=== PATIENT | female | born 1935 ===

== ENCOUNTER 2018-09-06 21:24 | Inpatient (IN) ==
[2018-09-07] MEDS ORDERED: *HR* FentaNYL (PF) 100 MCG/2 ML VIAL IVP PRN (01:54)
[2018-09-07] MEDS: *HR* OxyCODONE/APAP 5/325 TABLET PO PRN (02:36)
[2018-09-07] MEDS ORDERED: Naloxone 0.4 MG/ML INJ IVP PRN (03:16)
--- NOTE | 2018-09-07 03:29 | Internal Med History&Physical ---
Date of Encounter: 09/07/18 Time of Encounter: 03:00 Internal Medicine - H&P: HPI Chief complaint: Right hip fracture Admitted From: Hospital to Hospital Transfer Plans for Post Hospital Care: Home History of present illness: Ms. LEWIS is a 83 year old female Patient presented to the [facility] for evaluation of right hip pain. She says that she had a fall at home after she was trying to get up out of her chair and then she fell onto her right hip. She denies dizziness, blacking out and losing consciousness. She denies hitting her head. She has never had a broken bone before, but has had falls before at home. She uses a cane and a walker to get around. In the [place] emergency room patient's vital signs were: Heart rate 95, blood pressure 207/76, respiratory rate 18 oxygen saturation 95% on room air. CBC: White count 12.9, hemoglobin 11.5, hematocrit 35, platelets 261. BMP: Sodium 141, potassium 4.1, chloride 102, carbon dioxide 26, glucose 142, BU when 33, creatinine 1.22. INR: 1.0. Troponin 0.04. Urinalysis moderate leukocyte esterase and positive nitrites. A chest x-ray showed no acute cardiopulmonary process. CT of the patient's right hip showed a transcervical right femoral neck fracture with mild superior and anterior displacement of the distal fracture fragment. There was tiny 1-2 mm fracture fragments seen anterior to the fracture line. Patient was given 5 mg dose of [place], 50 g of fentanyl and [address] Chavez of orthopedic surgery was notified, and agreed to see the patient in consultation. Patient was transferred to [facility] for further management. Upon my evaluation, patient is resting comfortably in the hospital bed in no acute distress. She denies chest pain, abdominal pain, nausea, vomiting, diarrhea and constipation. She says the right hip feels better, but still painful with movement. She denies dysuria as well. She denies significant family medical history, review of patient's chart indicates that patient has a history of diabetes, hypertension and a pacemaker placement. She is a full code. Past Med Surg Social Fam HX - Past Medical History Medical history: atrial fibrillation, dementia, diabetes, hypertension, thyroid disease - Past Surgical History Surgical History: pacemaker/AICD - Social History Smoking Status: Never smoker Smokeless Tobacco Status: No Alcohol use: none - Family History Mother History Unknown: Yes All Systems PM: A 10-system review of systems was performed and is negative for pertinent findings except as documented above in the HPI. - Constitutional Vitals: Pulse Ox 95 09/07/18 01:09 General appearance: Present: cooperative, A&O X 3, pleasant, no acute distress, answers questions appropriately Exam: - - Head Head exam: Present: normal inspection - Eye Eye exam: Present: EOMI, normal appearance - Respiratory Respiratory exam: Present: CTAB. Absent: rales, respiratory distress, rhonchi, wheezes - Cardiovascular Cardiovascular exam: Present: RRR. Absent: diastolic murmur, systolic murmur - GI/Abdominal GI/Abdominal exam: Present: normal bowel sounds, soft. Absent: tenderness - Extremities Exam Extremities exam: Present: warm, radial pulses palpable and symmetrical. Absent: calf tenderness, pedal edema, tenderness Additional comments: Neurovascularly intact in the lower extremities bilaterally. Right hip tender to palpation laterally - Neurological Exam Neurological exam: Present: no focal deficits, strengths equal and symetr throughout. Absent: motor sensory deficit, facial droop, speech deficit - Skin Skin exam: Present: dry, normal color, warm - Assessment and Plan (1) Fall Current Visit: Yes Status: Acute Assessment and plan: Mechanical fall after patient anthony from chair. She has baseline mobility problems, requiring a walker or cane. Right hip fracture noted on imaging. She did not hit her head, no other injuries reported. Management as below Qualifiers: Encounter type: initial encounter Qualified Code(s): W19.XXXA - Unspecified fall, initial encounter (2) Closed right hip fracture Current Visit: Yes Status: Acute Assessment and plan: Right hip fracture noted on CT. Dr. Chavez of orthopedic surgery has been notified. Follow-up orthopedic surgery recommendations Nothing by mouth Pain management as needed A.m. labs A.m. EKG Qualifiers: Encounter type: initial encounter Qualified Code(s): S72.001A - Fracture of unspecified part of neck of right femur, initial encounter for closed fracture (3) Urinary tract infection Current Visit: Yes Status: Acute Assessment and plan: Patient's urinalysis was positive for nitrites and moderate leukocyte esterase. There are also white blood cells and bacteria seen. She was started on ceftriaxone at the [place] emergency room. This could explain her elevated white count as well. Continue ceftriaxone Qualifiers: Urinary tract infection type: acute cystitis Hematuria presence: with hematuria Qualified Code(s): N30.01 - Acute cystitis with hematuria (4) Diabetes Current Visit: Yes Status: Acute Assessment and plan: Patient is an insulin-dependent diabetic Monitor sugars every 6 hours Nothing by mouth Low dose insulin sliding scale as needed Hold home meds. 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 Patient denies chest pain. EKG shows electronic atrial pacemaker, no acute ischemic changes. manager managed backup services Repeat troponin EKG in the morning Consider further workup including echocardiogram if indicated (6) DVT prophylaxis Current Visit: Yes Status: Acute Assessment and plan: SCDs - Time Spent With Patient Total time spent is greater than 50% in coordination of care (as documented) at patient's floor/unit and/or counseling patient: Greater than 35 minutes
[2018-09-07] MEDS ORDERED: Dextrose Gel 15 GM/37.5 ML TUBE PO PRN ×2 (03:30)
[2018-09-07] MEDS ORDERED: *HR* Dextrose 50 % in Water (Syg) 50 ML SYRINGE IVP PRN (03:30)
[2018-09-07] MEDS ORDERED: D5% in Water 1,000 ML IVC PRN (03:30)
[2018-09-07] MEDS ORDERED: Acetaminophen 325 MG TABLET PO PRN (04:57)
[2018-09-07 05:45] LABS: Hematocrit 33.7 % (35.3-44.9); Hemoglobin 11.1 g/dL (11.5-15.4); Mean Corpuscular HGB Conc 32.9 g/dL (31.6-35.5); Mean Corpuscular Hemoglobin 30.1 pg (28.0-33.3); Mean Corpuscular Volume 91.3 fL (83.0-100.0); Mean Platelet Volume 9.6 fL (9.4-12.4); Platelet Count 217 K/mcL (140-400); Red Blood Count 3.69 M/mcL (3.82-4.97); Red Cell Distribution Width 12.2 % (11.5-14.5)
[2018-09-07 05:50] LABS: Prothrombin Time 11.7 Seconds (9.4-12.1)
[2018-09-07] MEDS: Insulin LISPRO 300 UNITS/3 ML VIAL SQ SCH ×2 (05:54→11:59)
[2018-09-07 06:04] LABS: BUN/Creatinine Ratio 26 (6-26); Blood Urea Nitrogen 26 mg/dL (8-23); Calcium 9.2 mg/dL (8.6-10.3); Carbon Dioxide 31 mEq/L (23-29); Chloride 103 mEq/L (98-107); Glucose 117 mg/dL (70-105); Osmolality,Calculated 296 (280-300); Potassium 3.8 mEq/L (3.5-5.1); Sodium 140 mEq/L (136-145); eGFR For Non-African Americans 53 (> 60)
[2018-09-07 06:06] LABS: Troponin I 0.14 ng/mL (< 0.04)
[2018-09-07] MEDS ORDERED: *HR* Heparin 5,000 UNIT/ML VIAL IVP ONE (06:23)
[2018-09-07] MEDS ORDERED: *HR* Heparin 5,000 UNIT/ML VIAL IVP PRN ×2 (06:23)
[2018-09-07] MEDS ORDERED: Heparin 25,000 UNIT/250 ML D5W 25,000 UNIT/250 ML IV.SOLN IVC SCH (06:30)
--- NOTE | 2018-09-07 09:01 | Event Note ---
Date of Encounter: 09/07/18 Time of Encounter: 08:56 I have seen and evaluated the patient and bedside. She reports right hip pain, denies chest pain. Reports hitting her head when she fell, denies nausea, vomiting or dizziness. Physical exam Vitals: Reviewed. General: Alert and oriented only to person not time or place. in mild distress due to right hip pain Skin: Normal color, no rash, no lesions. HEENT: EOM, pupils equal, round and reactive. Cardiovascular: Irregularly irregular, normal S1 & S2, no rubs, murmurs or gallops. Lungs: CTA b/l, no wheezes or crackles. Abdomen: Soft, non-tender, no rigidity. Extremities: No edema Neurological: No focal neurological abnormalities Rest of the physical exam is non contributory Assessment: 1. Right hip fracture 2. S/P fall 3. Atrial fibrillation 4. Elevated trops possible due to HTN crisis BP 207/76 on presentation 5. Dementia 6. Diabetes 7. HTN 8. VTE prophylaxis 9. UTI Plan cardiology consulted for pre-op clearance on a heparin drip due to elevated trops TTE ordered Orthopedic team consulted, recommendation appreciated. On ceftriaxone 1 g daily Continue oxycodone for pain control We will resume home medication when verified by the pharmacy head ct ordered
[2018-09-07] MEDS: D5% in 0.45% NACL 1,000 ML IVC SCH ×2 (09:37→20:58)
[2018-09-07] MEDS: cefTRIAXone 1,000 MG in Water for inj. (sterile) 20 ML 10 ML IVP SCH (09:38)
[2018-09-07] MEDS: OXYCODONE Oral CONC 10 MG/0.5 ML ORAL.SYG SL PRN ×3 (09:38→22:38)
--- NOTE | 2018-09-07 10:22 | Cardiology Consult Note ---
<Shantal Rivas - Last Filed: 09/07/18 10:16> Date of Encounter: 09/07/18 Time of Encounter: 09:30 Assessment and Plan (1) Elevated troponin Current Visit: Yes Status: Acute Per cardiology: -Troponins 0.04 [place], 0.14 in the setting of fall, hip fracture, UTI. -Denies chest pain. -No acute ischemic changes noted. -TTE pending. -On heparin drip. -No previous cardiology records to review. -Suspect demand ischemia. NO cardiac rehab consult warranted. -Continue to trend troponins. -Futher recs pending TTE. (2) Preop cardiovascular exam Current Visit: Yes Status: Acute Per cardiology: -Preop risk stratification for orthopedic procedure. -Patient is a poor historian and no previous cardiology records to review. -Patient reports unable to achieve 4 METS. -TTE pending. -No acute ischemic ECG changes noted. -Patient would be at elevated risk for cardiovascular complications in the alea- operative time frame. Discussion w patient/family: The assessment and plan as outlined above was discussed with the patient who expressed understanding and agreement. All questions were answered. Thank you for involving us in the care of your patient. Please call with any questions. Discussed and reviewed with . History of Present Illness Consult date: 09/07/18 Requesting physician: Holland Cabrera Consult reason: elevated troponin, preop Chief complaint: fall History of present illness: Ms. Dumont is a 83 year old female with a relevant past medical history of CKD, D M, HTN, pacemaker. dementia who presented to outside facility with complaints of a fall at home. States she fell getting out of her chair. Denies dizziness, lightheadedness. States she just lost her balance. At outside facility was noted to have hip fracture and UTI. Troponin was elevated at 0.04. Patient denies chest pain. Denies shortness of breath. Reports unable to achieve 4 mets. Reports pacemaker, but is unsure why she has a pacemaker. Past Med Surg Social Fam HX - Past Medical History Attestation: Yes The following information was validated with the patient. Source: patient, old records reviewed Medical history: atrial fibrillation, dementia, diabetes, hypertension, thyroid disease - Past Surgical History Surgical History: pacemaker/AICD - Social History Smoking Status: Never smoker Smokeless Tobacco Status: No Alcohol use: none - Family History Mother History Unknown: Yes Medications and Allergies Allergy/AdvReac Type Severity Reaction Status Date / Time No Known Allergies Allergy Verified 09/07/18 06:27 All Systems Review: The remainder of the systems were reviewed and are negative - Constitutional Constitutional: frequent falls - Cardiovascular Cardiovascular: as per HPI Physical Examination Vital Signs, Last 4 Hours Temp Pulse Resp BP Pulse Ox 09/07/18 07:09 99.3 F 71 14 150/64 93 General: Conversant, No Apparent Distress HEENT: Atraumatic, Normocephaly, Mucus Membranes Moist Neck: No JVD, Normal carotid pulses Cardiac: Reg Rate and Rhythm, Normal S1 and S2, No Murmur Lungs: Normal Breath Sounds, No Wheeze, Rales, Rhonchi Neuro: Alert and responsive, No focal deficits noted Abdomen: Soft, Non-Tender Skin: No rashes noted on visualized skin Musculoskeletal: No Chest Wall Tenderness Extremities: No Clubbing, No Cyanosis, No Edema, Normal Pulses Results 09/07/18 05:28 09/07/18 05:25 Lab Results Impressions Outside Interv Exam: Second Opinion 09/07/18 00:00 IMPRESSION: 1. Acute right hip anterior displaced and angulated femoral neck fracture with normal hip alignment and mild osteoarthritis. 2. Acute left hip anterior angulated and impacted femoral neck fracture with normal hip alignment and mild osteoarthritis. 3. Normal pelvic alignment with no acute pelvic fracture. Mild symmetric sacroiliac osteoarthritis. 4. Lower lumbar degenerative changes with grade 1 spondylolisthesis. 5. No significant intramuscular hematoma or acute intrapelvic posttraumatic abnormality. 6. Indeterminate left external iliac chain lymphadenopathy. If patient has prior exams this could be evaluated for stability. D/ / 09/07/2018 09:44:33 Mamadou Bowling MD / Isadora Stapleton Interpreting Provider: Mamadou Bowling MD Laboratory Tests 09/07/18 09/07/18 05:25 05:28 Hgb 11.1 L Creatinine 1.00 Troponin I 0.14 H* Active Medications Acetaminophen (Tylenol) 650 mg PO Q6HR PRN PRN Reason: fever GREATER than 101.2 F Stop: 03/09/19 04:58 Dextrose/Water (Dextrose 50% (Syg)) 25 ml IVP AD PRN PRN Reason: Hypoglycemia Stop: 03/09/19 03:31 Fentanyl Citrate (Fentanyl (Pf)) 25 mcg IVP Q3H PRN PRN Reason: Breakthrough Pain Stop: 03/09/19 02:01 Glucagon (Glucagen) 1 mg IM ONCE PRN PRN Reason: Hypoglycemia Stop: 03/09/19 03:31 Glucose (Gluctose) 15 gm PO ONCE PRN PRN Reason: Hypoglycemia Stop: 03/09/19 03:31 Glucose (Gluctose) 30 gm PO ONCE PRN PRN Reason: Hypoglycemia Stop: 03/09/19 03:31 Heparin Sodium (Porcine) (Heparin) 3,900 unit 60 unit/kg (3900 unit) IVP Q6HR PRN PRN Reason: SEE COMMENTS Stop: 03/09/19 06:24 Heparin Sodium (Porcine) (Heparin) 2,000 unit 30 unit/kg (2000 unit) IVP Q6H PRN PRN Reason: SEE COMMENTS Stop: 03/09/19 06:24 Hydralazine HCl (Hydralazine) 10 mg IVP Q6HR PRN PRN Reason: Hypertension Stop: 03/09/19 05:13 Last Admin: 09/07/18 05:44 Dose: 10 mg Documented by: Ceftriaxone Sodium 1,000 mg/ (Sterile Water) 10 mls @ 600 mls/hr IVP DAILY ALEXI Stop: 03/09/19 09:01 Last Admin: 09/07/18 09:38 Dose: 600 mls/hr Documented by: Dextrose (Dextrose 5%) 1,000 mls @ 100 mls/hr IVC .Q10H PRN PRN Reason: HYPOGLYCEMIA Stop: 03/09/19 03:31 Heparin Sodium/Dextrose (Heparin 25,000 Unit/250 Ml D5w) 25,000 unit in 250 mls @ 7.824 mls/hr IVC .Q24H ALEXI; Protocol Stop: 03/09/19 06:31 Last Admin: 09/07/18 06:59 Dose: 12 unit/kg/hr, 7.8 mls/hr Documented by: Dextrose/Sodium Chloride (D5% And 0.45% Nacl 1000 Ml Bag) 1,000 mls @ 50 mls/hr IVC .Q20H ALEXI Stop: 03/09/19 08:01 Last Admin: 09/07/18 09:37 Dose: 50 mls/hr Documented by: Insulin Human Lispro (Humalog) 0 units SQ Q6HR ALEXI; Protocol Stop: 03/09/19 06:01 Last Admin: 09/07/18 05:54 Dose: Not Given Documented by: Naloxone HCl (Narcan) 0.4 mg IVP Q2MPRN PRN PRN Reason: SEE COMMENTS Stop: 03/09/19 03:17 Oxycodone HCl (Oxycodone Oral Conc) 10 mg SL Q4H PRN; Protocol PRN Reason: Severe Pain Stop: 03/09/19 03:17 Last Admin: 09/07/18 09:38 Dose: 10 mg Documented by: Oxycodone/Acetaminophen (Percocet 5/325) 1 each PO Q6HR PRN PRN Reason: Moderate Pain Stop: 03/09/19 01:55 Last Admin: 09/07/18 02:36 Dose: 1 each Documented by: - Imaging and Cardiology Chest Xray: report reviewed Echo: pending - EKG Interpretation EKG results cardiology: personally reviewed (ECG with atrially paced rhythm, HR 74.), other (Telemetry reviewed with average HR previous 12 hours noted to be 65, paced rhythm. PVCs noted.) Consult Discharge Plan - Plan Referrals: NONE,PCP [Primary Care Provider] - <Landy Pinedo - Last Filed: 09/07/18 16:00> Date of Encounter: 09/07/18 - Attending Attestation Patient was seen and evaluated independently by me. Findings, assessment and plan were discussed at length with patient, questions answered. Agree with nurse practitioner's/resident's documentation. Addition as follows, 83 yoCM ho dementia, PPM, HTN, DM. P/w a fall with B/L femoral fracture. Plan for ORIF. Consulted for trop elevation. No cp, dyspnea, palpitations. No ho [place]. Baseline limited walking at home, METs unclear. Tangential speech. VSS, CTA, RR, no LE edema. ECG A pacing, trop peak 0.14, TTE ef 65%, RV nl, moderate TR, mild PH RVSP 46. A: B/L femoral fracture Mild troponin elevation, likely type II or mycardial injury Preserved LVEF PPM in place, A pacing Elevated CV risk for surgery, no active angina/CHF/uncontrolled arrhythmia P: no further CV workup for surgery alea-op lopressor prn for hypertension and tachycardia Landy Pinedo MD, PhD Assessment and Plan Discussion w patient/family: The assessment and plan as outlined above was discussed with the patient and/or family members who expressed understanding and agreement. All questions were answered. Thank you for involving us in the care of your patient. Please call with any questions. History of Present Illness History of present illness: Ms. Dumont is a 83 year old female All Systems Review: The remainder of the systems were reviewed and are negative Results 09/07/18 05:28 09/07/18 05:25 Lab Results 09/07/18 09/07/18 09/07/18 05:25 05:25 05:28 WBC 10.1 Hgb 11.1 L Hct 33.7 L Plt Count 217 INR 1.0 Sodium 140 Potassium 3.8 Chloride 103 Carbon Dioxide 31 H BUN 26 H Creatinine 1.00 Glucose 117 H Calcium 9.2 Troponin I 0.14 H* 09/07/18 12:29 WBC Hgb Hct Plt Count INR Sodium Potassium Chloride Carbon Dioxide BUN Creatinine Glucose Calcium Troponin I 0.08 H*
--- NOTE | 2018-09-07 10:39 | Orthopedic Consult Note ---
Date of Encounter: 09/07/18 Time of Encounter: 10:39 Assessment and Plan (1) Closed right hip fracture Current Visit: Yes Status: Acute I did have a long discussion with the patient regarding the diagnosis. She has a right displaced femoral neck fracture as well as an impacted left femoral neck fracture. My recommendation is to proceed with right hip hemiarthroplasty due to the displacement and pinning of the left hip. The risks discussed included but were not limited to stiffness, bleeding, infection, blood clots, damage to neurovascular structures, tendons, ligaments, and bone. Also discussed was the risk of continued symptoms and possible need for further procedures. I did discuss the anesthesia risks including stroke, heart attack, and . I did discuss the reasonable, foreseeable postoperative course with the patient. The patient did wish to proceed and consent was obtained. We will proceed once cleared for surgery by the primary team. I have reviewed each of the pertinent components of this chart and any other pertinent medical component(s) including but not limited to pertinent application of the chief complaint, history of present illness, current medication, medical history, allergies, family history, medical history, surgical history, social history, review of systems, vital signs, and any other portion of the pertinent patient medical record directly or indirectly involved with this patient care that is pertinent based on my medical decision process. ORIANA Barrett Qualifiers: Encounter type: initial encounter Qualified Code(s): S72.001A - Fracture of unspecified part of neck of right femur, initial encounter for closed fracture History of Present Illness HPI: Ms. Dumont is a 83 year old female transferred from [facility] with a chief complaint of right hip pain. She seen at that facility where x-rays and a CT scan was performed of her right hip showing a displaced femoral neck fracture. She is transferred to our facility for definitive management and is currently admitted to the hospitalist. The patient complains of pain isolated to the right hip and said she had a fall. She denies any other significant pain. She denies any numbness, tingling, or any other associated signs or symptoms. The pain is worse with movement of the right hip and better with rest. No other modifying factors. Past Med Surg Social Fam HX - Past Medical History Medical history: atrial fibrillation, dementia, diabetes, hypertension, thyroid disease - Past Surgical History Surgical History: pacemaker/AICD - Social History Smoking Status: Never smoker Smokeless Tobacco Status: No Alcohol use: none - Family History Mother History Unknown: Yes Medications and Allergies Allergy/AdvReac Type Severity Reaction Status Date / Time No Known Allergies Allergy Verified 09/07/18 06:27 All Systems Reviewed: Constitutional -The patient denies any fevers, chills, or feelings of illness Neurologic -The patient denies any numbness, tingling, or burning pains Physical Exam - Constitutional Vitals: Temp Pulse Resp BP Pulse Ox 99.3 F 71 14 150/64 93 09/07/18 07:09 09/07/18 07:09 09/07/18 07:09 09/07/18 07:09 09/07/18 07:09 Constitutional -Vitals reviewed -The patient is well developed and well nourished. -Mood is pleasant. -The patient is well groomed. Psychiatric -The patient is fully alert and oriented x 3. Respiratory: -Respiratory effort normal Abdomen: -Soft abdomen -Non tender -Non distended: Left upper extremity: -No deformities. The overlying skin is intact. No obvious signs of acute trauma. -No tenderness to palpation throughout. -No significant pain with passive motion of the shoulder, elbow, wrist, and fingers within the limits of the bed. -Able to make an "OK" sign, cross the index and long fingers, and extend the thumb. -Sensation grossly intact to light touch throughout the median, radial, and ulnar distributions. -Radial pulse is present; Fingers have good capillary refill. Right upper extremity: -No deformities. The overlying skin is intact. No obvious signs of acute trauma. -No tenderness to palpation throughout. -No significant pain with passive motion of the shoulder, elbow, wrist, and fingers within the limits of the bed. -Able to make an "OK" sign, cross the index and long fingers, and extend the luis miguel mb. -Sensation grossly intact to light touch throughout the median, radial, and ulnar distributions. -Radial pulse is present; Fingers have good capillary refill. Left lower extremity: -No deformities. The overlying skin is intact. No obvious signs of acute trauma. -No tenderness to palpation throughout. -No significant pain with passive motion of the left hip. -No pain with passive motion of the knee, ankle, and toes within the limits of the bed. -No pain with axial loading of the thigh. -Able to dorsiflex and plantarflex the ankle and toes. -Sensation is grossly intact to light touch throughout the sural, saphenous, superficial peroneal, and deep peroneal distributions. -Toes have good capillary refill. Right lower extremity: -The extremity is shortened and externally rotated. The overlying skin is intact. -There is tenderness in the groin region as well as the proximal lateral thigh. -I did not range the hip due to the known fracture. -No tenderness along the distal thigh, leg, ankle, foot, or toes. -Able to dorsiflex and plantarflex the ankle and toes. -Sensation is grossly intact to light touch throughout the sural, saphenous, superficial peroneal, and deep peroneal distributions. -Toes have good capillary refill. Diagnostic Imaging: I did personally review and interpret the right hip x-ray and CT scan from the outlying facility. There is a displaced right femoral neck fracture. I did discuss the left hip with Dr. Bowling of muscular skeletal radiology and we both feel that there is an acute impaction of the left femoral neck. Results - Labs Result Diagrams: 09/07/18 05:28 09/07/18 05:25 Labs: Abnormal lab results RBC 3.69 M/mcL (3.82-4.97) L 09/07/18 05:28 Hgb 11.1 g/dL (11.5-15.4) L 09/07/18 05:28 Hct 33.7 % (35.3-44.9) L 09/07/18 05:28 Heparin Anti-Xa, Unfract 0.01 IU/mL (0.30-0.70) L 09/07/18 06:37 Carbon Dioxide 31 mEq/L (23-29) H 09/07/18 05:25 BUN 26 mg/dL (8-23) H 09/07/18 05:25 Est GFR (Non-Af Amer) 53 (> 60) L 09/07/18 05:25 Glucose 117 mg/dL (70-105) H 09/07/18 05:25 0.14 ng/mL (< 0.04) H* 09/07/18 05:25 H & H 09/07/18 Range/Units 05:28 Hgb 11.1 L (11.5-15.4) g/dL Hct 33.7 L (35.3-44.9) % All other labs normal. Consult Discharge Plan - Plan Referrals: NONE,PCP [Primary Care Provider] -
--- NOTE | 2018-09-07 14:59 | Anesthesia Evaluation PreOp ---
Date of Encounter: 09/07/18 Time of Encounter: 15:21 - Past History Planned Operation: Right linda-hip, left percutaneous pinning Cardiac History: MD (? likely demand ischemia; mildly elevated troponins in the setting of acute fall/hip fracture; patient poor historian and with unclear cardiac history without prior available records; unremarkable TTE this admission (although poor functional capacity - unable to achieve 4 METS); patient is at an elevated risk of alea-op cardiovascular complications), HTN, Arrhythmia (atrial fibrillation), Pacemaker/ICD (pacemaker only), Other Pulmonary History: Denies Any Significant HX CERTIFIED PEDIATRIC NURSE PRACTITIONER History: Other (dementia) Other Medical History: Diabetes Type II (insulin-dependent diabetes mellitus), Thyroid, Other (multiple acute fractures: right displaced femoral neck fracture, and impacted left femoral neck fracture) Anesthesia History: No Prior Anesthetic Complications, Past Anesthesia (C-S, pacemaker) Alcohol Use: none Medications and Allergies Allergy/AdvReac Type Severity Reaction Status Date / Time No Known Allergies Allergy Verified 09/07/18 06:27 - Meds/Allergy Pre-op Review Medications Reviewed: Yes Allergies Reviewed: Yes Beta Blockers on Current Med List: No Anesthesia Results - Labs 09/07/18 05:28 09/07/18 05:25 - Imaging EKG: report reviewed, image reviewed (electronic atrial pacemaker) Additional studies: 09-07-18 TTE: Impressions: LVEF 65%. Mild left ventricular diastolic dysfunction. Normal right ventricular structure and function. Moderate tricuspid regurgitation. Mild pulmonary hypertension. A device lead was visualized in the right atrium and right ventricle. Anesthesia Exam Last Vital Signs Temp 98.9 F 09/07/18 09:53 Pulse 76 09/07/18 09:53 Resp 16 09/07/18 09:53 BP 144/67 09/07/18 09:53 Pulse Ox 95 09/07/18 09:53 Weight: 65 kg NPO (# of Hours): > 8 hrs - HEENT Pupil (Motor): Pupils equal, EOMI Mallampati: II Teeth: Edentulous Oral Opening: Greater than 3 - CERTIFIED PEDIATRIC NURSE PRACTITIONER LOC: Oriented - Cardiac Rhythm: Regular Murmur: None - Pulmonary Breath Sounds: bilateral Clear Respiratory Effort: Symmetrical Anesthesia Assess/Plan ASA Score: 3 Level of consciousness: Cooperative Anesthetic Plan: General Monitoring Plan: Standard Monitors Recovery Plan: PACU
--- NOTE | 2018-09-07 16:54 | Event Note ---
Date of Encounter: 09/07/18 Time of Encounter: 16:52 Patient has been medically cleared but has been on a heparin drip. This has now been discontinued. I did discuss the case with my partner Dr. Henry who will perform the surgery this weekend.
[2018-09-07] MEDS: *HR* Heparin 5,000 UNIT/ML VIAL SQ SCH (22:38)
[2018-09-08 01:06] LABS: Basophils % 0.3 %; Eosinophils % 0.1 %; Hematocrit 36.8 % (35.3-44.9); Immature Granulocytes % 0.3 % (0-4); Lymphocytes # 0.9 K/mcL (0.6-4.6); Lymphocytes % 7.5 %; Mean Corpuscular HGB Conc 32.6 g/dL (31.6-35.5); Mean Corpuscular Hemoglobin 30.2 pg (28.0-33.3); Mean Corpuscular Volume 92.7 fL (83.0-100.0); Mean Platelet Volume 9.8 fL (9.4-12.4); Monocytes # 0.7 K/mcL (0.0-1.3); Monocytes % 5.5 %; Neutrophils # 10.1 K/mcL (1.6-8.9); Platelet Count 219 K/mcL (140-400); Red Blood Count 3.97 M/mcL (3.82-4.97); Red Cell Distribution Width 12.4 % (11.5-14.5); Segmented Neutrophils % 86.3 %
[2018-09-08 01:15] LABS: BUN/Creatinine Ratio 20 (6-26); Blood Urea Nitrogen 20 mg/dL (8-23); Calcium 9.2 mg/dL (8.6-10.3); Carbon Dioxide 29 mEq/L (23-29); Chloride 98 mEq/L (98-107); Glucose 151 mg/dL (70-105); Magnesium 1.7 mg/dL (1.6-2.6); Osmolality,Calculated 294 (280-300); Phosphorous 2.9 mg/dL (2.7-4.5); Potassium 3.6 mEq/L (3.5-5.1); Sodium 139 mEq/L (136-145); eGFR For Non-African Americans 54 (> 60)
[2018-09-08] MEDS: *HR* Heparin 5,000 UNIT/ML VIAL SQ SCH ×3 (06:24→22:52)
[2018-09-08] MEDS: Insulin LISPRO 300 UNITS/3 ML VIAL SQ SCH ×3 (08:03→16:50)
[2018-09-08] MEDS: cefTRIAXone 1,000 MG in Water for inj. (sterile) 20 ML 10 ML IVP SCH (08:06)
--- NOTE | 2018-09-08 09:44 | Internal Med Progress Note ---
Hospitalist Progress Note - Encounter Date of Encounter: 09/08/18 Time of Encounter: 09:43 - Subjective Interval History: I have seen and evaluated the patient at bedside. Patient pleasantly demented, denies chest pain, shortness of breath, nausea and vomiting. - Exam Vitals: Temp Pulse Resp BP Pulse Ox 99.8 F H 67 16 148/75 93 09/08/18 07:13 09/08/18 07:13 09/08/18 07:13 09/08/18 07:13 09/08/18 07:13 Exam: Vitals: Reviewed. General: Alert and oriented only to person not time or place. in no distress Cardiovascular: Irregularly irregular, normal S1 & S2, no rubs, murmurs or gallops. Lungs: CTA b/l, no wheezes or crackles. Abdomen: Soft, non-tender, no rigidity. NABS in all 4 quadrants Extremities: No edema Neurological: No focal neurological abnormalities Rest of the physical exam is non contributory - Assessment and Plan (1) Hypertension Current Visit: Yes Status: Chronic Assessment and Plan: BP has been well controlled. will resume clonidine 0.1mg/PO BID, home medication. will hold amlodipine/valsartan and triamterene/HCTZ. continue hydralazine 10mg/IV Q6HR PRN for SBP >190 (2) Dementia Current Visit: Yes Status: Chronic Assessment and Plan: will resume home medications patient on memantie 28mg/PO daily and donepezil 10mg/PO daily (3) Closed right hip fracture Current Visit: Yes Status: Acute Assessment and Plan: patient scheduled for surgery tomorrow. plan of care as per orthopedic team. (4) Diabetes Current Visit: Yes Status: Chronic Assessment and Plan: A1C ordered. carbs controlled diet. continue lispro low dose sliding scale ac. (5) Elevated troponin Current Visit: Yes Status: Ruled-out Assessment and Plan: most likely due to demand ischemia. due to hypertensive crisis on presentation (6) Fall Current Visit: Yes Status: Acute Assessment and Plan: fall precautions. 1:1 sitter as patient has been trying to get out of bed. PT/OT . (7) Urinary tract infection Current Visit: Yes Status: Acute Assessment and Plan: patient started on ceftriaxone 1gm/IV daily. will repeat ua, reflex culture (8) Hypothyroidism Current Visit: Yes Status: Chronic Assessment and Plan: on levothyroxine 25 mcg/PO daily. (9) Atrial fibrillation Current Visit: Yes Status: Chronic Assessment and Plan: rate controlled off medications. not on anticoagulation due to high risk of falls DVT Prophylaxis: On heparin SubQ - Summary of Assessment and Plan Summary of Assessment and Plan: Patient to remain in the hospital due to right hip fracture. scheduled for surgery tomorrow - Time Spent with Patient Total time spent is greater than 50% in coordination of care (as documented) at patient's floor/unit and/or counseling patient: Greater than 35 minutes (40) Plan of Care Discussed with: nurse Internal Medicine: Result - Labs CBC & Chem 7: 09/08/18 00:43 09/08/18 00:43 Labs: Short CBC 09/08/18 Range/Units 00:43 WBC 11.7 H (4.3-11.1) K/mcL Hgb 12.0 (11.5-15.4) g/dL Hct 36.8 (35.3-44.9) % Plt Count 219 (140-400) K/mcL Neutrophils # 10.1 H (1.6-8.9) K/mcL BMP 09/08/18 00:43 Sodium 139 Potassium 3.6 Chloride 98 Carbon Dioxide 29 BUN 20 Creatinine 0.98 Glucose 151 H Calcium 9.2 Cardiac Enzymes 09/07/18 09/07/18 09/08/18 Range/Units 12:29 19:02 00:43 Troponin I 0.08 H* 0.08 H* 0.07 H* (< 0.04) ng/mL 09/08/18 Range/Units 08:23 Troponin I 0.06 H* (< 0.04) ng/mL - ABG Interpretation ABG results: PT/INR, D-dimer PT 11.7 Seconds (9.4-12.1) 09/07/18 05:25 - Impressions Impressions Outside Interv Exam: Second Opinion 09/07/18 00:00 IMPRESSION: 1. Acute right hip anterior displaced and angulated femoral neck fracture with normal hip alignment and mild osteoarthritis. 2. Acute left hip anterior angulated and impacted femoral neck fracture with normal hip alignment and mild osteoarthritis. 3. Normal pelvic alignment with no acute pelvic fracture. Mild symmetric sacroiliac osteoarthritis. 4. Lower lumbar degenerative changes with grade 1 spondylolisthesis. 5. No significant intramuscular hematoma or acute intrapelvic posttraumatic abnormality. 6. Indeterminate left external iliac chain lymphadenopathy. If patient has prior exams this could be evaluated for stability. D/ / 09/07/2018 09:44:33 Mamadou Bowling MD / Isadora Stapleton Interpreting Provider: Mamadou Bowling MD Echocardiogram 09/07/18 06:20 Impressions: LVEF 65%. Mild left ventricular diastolic dysfunction. Normal right ventricular structure and function. Moderate tricuspid regurgitation. Mild pulmonary hypertension. A device lead was visualized in the right atrium and right ventricle. Left Ventricular Wall Motion: Rest Echo Findings All wall segments showed normal motion. Findings: Study Quality * Technically adequate exam. ECG Findings * Normal sinus rhythm. Left Ventricle * LVEF 65%. * Normal LV chamber size, wall thickness and function. * Mild left ventricular diastolic dysfunction. Right Ventricle * Normal right ventricular structure and function. Left Atrium * Normal left atrial size. Right Atrium * Normal right atrial size. Aortic Valve * No aortic regurgitation. * Trileaflet aortic valve. * Mildly calcified aortic valve leaflets. * No aortic stenosis. Mitral Valve * Mild mitral annular calcification * No mitral stenosis. * Trace mitral regurgitation. Tricuspid Valve * Tricuspid valve not well visualized. * Moderate tricuspid regurgitation. * Estimated RA pressure is 3 mmHg. * Estimated RVSP is 46 mmHg. * Mild pulmonary hypertension. Pulmonic Valve * Pulmonic valve is not well visualized. * No pulmonic stenosis. * No pulmonic regurgitation. Pulmonary Artery * Pulmonary artery not well visualized. Aorta * Normally sized aortic root. Pericardium * There is no pericardial effusion present. Device lead * A device lead was visualized in the right atrium and right ventricle. Interatrial Septum * No evidence of PFO by color Doppler. IVC * Normal IVC dimensions and inspiratory collapse. Head CT 09/07/18 11:00 IMPRESSION: No acute intracranial abnormality. Sequela of chronic small vessel ischemic change and underlying brain parenchymal atrophy. D/ / 09/07/2018 11:37:33 Daljit Mancera MD / maida Interpreting Provider: Daljit Mancera MD Consult Discharge Plan - Plan Referrals: NONE,PCP [Primary Care Provider] - (1) Hypertension Qualifiers: Hypertension type: unspecified Qualified Code(s): I10 - Essential (primary) hypertension (2) Dementia Qualifiers: Dementia type: unspecified type Dementia behavioral disturbance: without behavioral disturbance Qualified Code(s): F03.90 - Unspecified dementia without behavioral disturbance (3) Closed right hip fracture Qualifiers: Encounter type: initial encounter Qualified Code(s): S72.001A - Fracture of unspecified part of neck of right femur, initial encounter for closed fracture (4) Diabetes Qualifiers: Diabetes mellitus type: type 2 Diabetes mellitus mcc insulin use: with termite treater helper use Diabetes mellitus complication status: without complication Qual ified Code(s): E11.9 - Type 2 diabetes mellitus without complications; Z79.4 - [facility] (current) use of insulin (6) Fall Qualifiers: Encounter type: initial encounter Qualified Code(s): W19.XXXA - Unspecified fall, initial encounter (7) Urinary tract infection Qualifiers: Urinary tract infection type: acute cystitis Hematuria presence: with hematuria Qualified Code(s): N30.01 - Acute cystitis with hematuria (8) Hypothyroidism Qualifiers: Hypothyroidism type: unspecified Qualified Code(s): E03.9 - Hypothyroidism, unspecified (9) Atrial fibrillation Qualifiers: Atrial fibrillation type: unspecified Qualified Code(s): I48.91 - Unspecified atrial fibrillation
--- NOTE | 2018-09-08 11:18 | Electrocardiograph Report ---
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
[2018-09-08 12:13] LABS: Bilirubin,Urine Negative (Negative); Blood,Urine Negative (Negative); Clarity,Urine Cloudy (Clear); Color,Urine Red (Yellow); Glucose,Urine (UA) Normal (Normal); Ketones,Urine Negative (Negative); Leukocyte Esterase,Urine Moderate (Negative); Nitrite,Urine Negative (Negative); PH,Urine 5.5 pH Units (5.0-8.0); Protein,Urine 30 mg/dL (Neg-Trace); Urobilinogen,Urine Normal (Normal)
[2018-09-08 12:16] LABS: Hyaline Casts,Urine None Seen per lpf (None-Few); WBC,Urine 15-30 per hpf (0-3)
[2018-09-08] MEDS: *HR* OxyCODONE/APAP 5/325 TABLET PO PRN (12:28)
[2018-09-08 12:35] LABS: Bacteria,Urine Few per hpf (None-Few); RBC,Urine 0-3 per hpf (0-3); Squamous Epithelial Cell,Urine Few per lpf (None-Few)
--- NOTE | 2018-09-08 15:02 | Orthopedics Progress Note ---
Date of Encounter: 09/08/18 Time of Encounter: 15:00 Subjective Principal diagnosis: Bilateral hip femoral neck fractures Interval history: The patient's the risk scheduled for yesterday but canceled due to being on heparin drip. The patient is doing well with no complaints today. I reviewed the patient's x-rays and CT scan and agree with Dr. Chavez. Diskus patient should be undergoing a right hip and arthroplasty and a percutaneous pinning of the left hip. Patient is currently on bedrest. Skin is intact, she has positive tenderness at the right groin but no tenderness on the left side. No tenderness of the long bones and she is moving her feet with some discomfort but she will to dorsiflex the foot and toes. Gross neurovascular intact distally The patient is scheduled for first case tomorrow morning. Objective Vital signs: Vital Signs Temp Pulse Resp BP Pulse Ox 09/08/18 11:08 99.2 F 65 17 165/79 94 09/08/18 07:13 99.8 F H 67 16 148/75 93 09/08/18 03:12 99.8 F H 66 16 144/63 94 09/07/18 23:30 94 09/07/18 23:25 99.1 F 138/68 09/07/18 22:59 99.3 F 62 18 175/68 94 09/07/18 17:00 98.0 F 72 16 148/70 93 Intake and Output 09/07/18 09/08/18 09/08/18 23:59 07:59 15:59 Intake Total 1000 / 1050 0 / 240 240 / 240 Output Total 750 / 1075 100 / 100 Balance 250 / -25 -100 / 140 240 / 140 Intake: IV Fluids 1000 / 1050 D5% And 0.45% Nacl 1000 Ml Bag 1000 / 1000 1,000 ML @ 50 mls/hr IVC .Q20H ALEXI Rx#:[id number] Oral 0 / 240 240 / 240 Output: Catheter 750 / 1075 100 / 100 Other: Meal Lunch Percent of Meal Consumed 80% Weight 67.04 kg Blood Glucose* 137 122 108 Patient Weight 09/08/18 23:59 Weight 67.04 kg - Labs CBC & BMP: 09/08/18 00:43 09/08/18 00:43 Labs: Abnormal lab results WBC 11.7 K/mcL (4.3-11.1) H 09/08/18 00:43 RBC 3.69 M/mcL (3.82-4.97) L 09/07/18 05:28 Hgb 11.1 g/dL (11.5-15.4) L 09/07/18 05:28 Hct 33.7 % (35.3-44.9) L 09/07/18 05:28 10.1 K/mcL (1.6-8.9) H 09/08/18 00:43 Heparin Anti-Xa, Unfract 0.71 IU/mL (0.30-0.70) H 09/07/18 12:29 Carbon Dioxide 31 mEq/L (23-29) H 09/07/18 05:25 BUN 26 mg/dL (8-23) H 09/07/18 05:25 Est GFR (Non-Af Amer) 54 (> 60) L 09/08/18 00:43 Glucose 151 mg/dL (70-105) H 09/08/18 00:43 POC Glucose 149 mg/dL (70-99) H 09/07/18 17:47 0.06 ng/mL (< 0.04) H* 09/08/18 08:23 Red (Yellow) A 09/08/18 12:07 Cloudy (Clear) A 09/08/18 12:07 30 mg/dL (Neg-Trace) H 09/08/18 12:07 Ur Leukocyte Esterase Moderate (Negative) H 09/08/18 12:07 15-30 per hpf (0-3) H 09/08/18 12:07 Consult Discharge Plan - Plan Referrals: NONE,PCP [Primary Care Provider] -
[2018-09-08] MEDS: cloNIDine HCl 0.1 MG TABLET PO SCH (22:52)
[2018-09-09] MEDS: OXYCODONE Oral CONC 10 MG/0.5 ML ORAL.SYG SL PRN (01:25)
[2018-09-09] MEDS ORDERED: Levothyroxine 25 MCG TABLET PO SCH (06:30)
[2018-09-09] MEDS: *HR* Heparin 5,000 UNIT/ML VIAL SQ SCH (06:34)
[2018-09-09] MEDS ORDERED: *HR* FentaNYL (PF) 100 MCG/2 ML VIAL ONE (07:24)
[2018-09-09] MEDS ORDERED: *HR* Propofol 200 MG/20 ML VIAL IVP ONE (07:24)
[2018-09-09] MEDS ORDERED: Dexamethasone 4 MG/ML VIAL ONE (07:25)
[2018-09-09] MEDS ORDERED: Lidocaine -MPF 2% 2 ML VIAL ONE (07:25)
[2018-09-09] MEDS ORDERED: *HR* Succinylcholine 200 MG/10 ML VIAL IVP ONE (07:25)
[2018-09-09] MEDS ORDERED: Ondansetron 4 MG/2 ML VIAL ONE (07:25)
[2018-09-09] MEDS: Insulin LISPRO 300 UNITS/3 ML VIAL SQ SCH ×3 (07:42→18:03)
[2018-09-09] MEDS ORDERED: Ethanol\\Acetic Acid\\Na Ace\\Ben 1,000 ML IRRIG.SOLN IR ONE (08:06)
[2018-09-09] MEDS: cloNIDine HCl 0.1 MG TABLET PO SCH ×2 (09:00→21:05)
[2018-09-09] MEDS ORDERED: *HR* PHENYLEPHRINE 1,000 MCG/10 ML SYRINGE IVP ONE (09:09)
[2018-09-09] MEDS: cefTRIAXone 1,000 MG in Water for inj. (sterile) 20 ML 10 ML IVP SCH (09:14)
[2018-09-09] MEDS ORDERED: cefTRIAXone 1,000 MG in Water for inj. (sterile) 20 ML 20 ML IVPB ONE (10:00)
[2018-09-09] MEDS ORDERED: *HR* HYDROMORPHONE 2 MG/ML VIAL ONE (10:13)
[2018-09-09] MEDS ORDERED: *HR* Promethazine 25 MG/ML VIAL IVP PRN ×3 (11:17→12:36)
[2018-09-09] MEDS ORDERED: *HR* HYDROmorphone (PF) 1 MG/ML SYRINGE IVP PRN ×2 (11:17→12:36)
[2018-09-09] MEDS ORDERED: Ondansetron 4 MG/2 ML VIAL IVP ONE ×2 (11:17→12:36)
[2018-09-09] MEDS ORDERED: *HR* Labetalol 20 MG/4 ML SYRINGE IVP PRN ×2 (11:17→12:36)
[2018-09-09] MEDS ORDERED: *HR* OxyCODONE Immed Rel 5 MG TABLET PO PRN ×2 (11:17→12:36)
--- NOTE | 2018-09-09 11:55 | Anesthesia Evaluation Post Op ---
Date of Encounter: 09/09/18 Time of Encounter: 11:55 - Vital Signs Vital Signs: Vital Signs/O2 Sat, Most Current Temp Pulse Resp BP Pulse Ox 98.9 F 60 16 139/68 95 09/09/18 11:52 09/09/18 11:52 09/09/18 11:52 09/09/18 11:52 09/09/18 11:52 - Lungs Lungs: Clear Ascult./Percussion - Airway Airway: Non-obstructed - Cardiovascular Regular Rate - Mental Status Mental Status: Alert & Oriented, Answers Appropriately - Pain Pain Scale: 0 Pain Scale used: Numeric (1 - 10) - Nausea Vomiting Nausea Vomiting: Not Present - Hydration Hydration: Tolerates oral liquids, Has not voided - Discharge PostOp Status: Transfer Patient to floor
[2018-09-09] MEDS ORDERED: *HR* Dextrose 50 % in Water (Syg) 50 ML SYRINGE IVP PRN (12:36)
[2018-09-09] MEDS ORDERED: D5% in Water 1,000 ML IVC PRN (12:36)
[2018-09-09] MEDS ORDERED: Naloxone 0.4 MG/ML INJ IVP PRN ×2 (12:36)
[2018-09-09] MEDS ORDERED: *HR* OxyCODONE/APAP 5/325 TABLET PO PRN (12:36)
[2018-09-09] MEDS ORDERED: cefTRIAXone 1,000 MG in Water for inj. (sterile) 20 ML 10 ML IVPB ONE (12:36)
[2018-09-09] MEDS ORDERED: Dextrose Gel 15 GM/37.5 ML TUBE PO PRN ×2 (12:36)
[2018-09-09] MEDS ORDERED: Ondansetron 4 MG/2 ML VIAL IVP PRN (12:36)
[2018-09-09] MEDS ORDERED: *HR* FentaNYL (PF) 100 MCG/2 ML VIAL IVP PRN (12:36)
[2018-09-09] MEDS ORDERED: Sennosides 8.6 MG TABLET PO PRN (12:36)
[2018-09-09] MEDS ORDERED: Ringers Solution, Lactated 1,000 ML IVC SCH (12:36)
[2018-09-09] MEDS ORDERED: Temazepam 15 MG CAPSULE PO PRN (12:36)
[2018-09-09] MEDS ORDERED: Acetaminophen 325 MG TABLET PO PRN (12:36)
[2018-09-09] MEDS ORDERED: MOM Conc 10 ML UD.LIQ PO PRN (12:36)
--- NOTE | 2018-09-09 14:32 | Internal Med Progress Note ---
Hospitalist Progress Note - Encounter Date of Encounter: 09/09/18 Time of Encounter: 14:29 - Subjective Interval History: I have seen and evaluated the patient at bedside. patient denies any distress s/p right hip and arthroplasty and a percutaneous pinning of the left hip. - Exam Vitals: Temp Pulse Resp BP Pulse Ox 98.3 F 61 14 127/58 94 09/09/18 14:00 09/09/18 14:00 09/09/18 14:00 09/09/18 14:00 09/09/18 14:00 Exam: Vitals: Reviewed. General: Alert and oriented only to person not time or place. in no distress Cardiovascular: Irregularly irregular, normal S1 & S2, no rubs, murmurs or gallops. Lungs: CTA b/l, no wheezes or crackles. Abdomen: Soft, non-tender, no rigidity. NABS in all 4 quadrants Extremities: No edema Neurological: No focal neurological abnormalities Rest of the physical exam is non contributory - Assessment and Plan (1) Hypertension Current Visit: Yes Status: Chronic Assessment and Plan: BP is well controlled. patient is on clinidine 0.1mg/PO BID home dose. hydralazine 5mg/IV Q6HR PRN for SBP >190 (2) Dementia Current Visit: Yes Status: Chronic Assessment and Plan: continue memantie 28mg/PO daily and donepezil 10mg/PO daily (3) Closed right hip fracture Current Visit: Yes Status: Acute Assessment and Plan: s/p right hip and arthroplasty and a percutaneous pinning of the left hip. pain control per ortho recommendations patient started on oxycodone 5mg SL Q6HR PRN PT/OT (4) Diabetes Current Visit: Yes Status: Chronic Assessment and Plan: blood sugar is well controlled on lispro low dose sliding scale plus a carb controlled diet A1c ordered 2 days ago, pending report (5) Elevated troponin Current Visit: Yes Status: Ruled-out (6) Fall Current Visit: Yes Status: Acute Assessment and Plan: as per patient daughter at bedside this is not the first time the patient falls. she would like the patient to get social science research assistant to go a longterm because she fee ls the patient is not safe as home. the patient's is also elder and cannot take care of the patient. also reports that the house has bugs. daughter's name: [phone] (7) Urinary tract infection Current Visit: Yes Status: Acute Assessment and Plan: urine culture: no growth will contine IV antibiotics for at least 1 more day (8) Hypothyroidism Current Visit: Yes Status: Chronic Assessment and Plan: Continue levothyroxine 25 mcg/PO daily. (9) Atrial fibrillation Current Visit: Yes Status: Chronic Assessment and Plan: Rate controlled. s/p pacemaker. telemetry monitoring no anticoagulation due to high risk of falls DVT Prophylaxis: on enoxaparin 30mg SubQ daily - Summary of Assessment and Plan Summary of Assessment and Plan: Patient to remain in the hospital due to right hip and arthroplasty and a percut aneous pinning of the left hip. will need placement - Time Spent with Patient Total time spent is greater than 50% in coordination of care (as documented) at patient's floor/unit and/or counseling patient: Greater than 35 minutes (40) Plan of Care Discussed with: nurse (and the patient's daughter at bedside.) Internal Medicine: Result - Labs CBC & Chem 7: 09/08/18 00:43 09/08/18 00:43 - ABG Interpretation ABG results: PT/INR, D-dimer PT 11.7 Seconds (9.4-12.1) 09/07/18 05:25 - Impressions Impressions Hip X-Ray 09/09/18 00:00 IMPRESSION: 1. Status post uncomplicated right hip arthroplasty. D/ / Trav Vila MD / Trav Vila MD Interpreting Provider: Trav Vila MD Fluoroscopy 09/09/18 08:45 IMPRESSION: Intraoperative exam demonstrating cannulated screw fixation of a femoral neck fracture. Please refer to the intraoperative report for full details. D/ / 09/09/2018 10:06:46 Hakeem Gomez MD / jose Interpreting Provider: Hakeem Gomez MD Consult Discharge Plan - Plan Referrals: NONE,PCP [Primary Care Provider] - (1) Hypertension Qualifiers: Hypertension type: unspecified Qualified Code(s): I10 - Essential (primary) hypertension (2) Dementia Qualifiers: Dementia type: unspecified type Dementia behavioral disturbance: without behavioral disturbance Qualified Code(s): F03.90 - Unspecified dementia without behavioral disturbance (3) Closed right hip fracture Qualifiers: Encounter type: initial encounter Qualified Code(s): S72.001A - Fracture of unspecified part of neck of right femur, initial encounter for closed fracture (4) Diabetes Qualifiers: Diabetes mellitus type: type 2 Diabetes mellitus director of sustainable design insulin use: with director of sustainable design use Diabetes mellitus complication status: without complication Qualified Code(s): E11.9 - Type 2 diabetes mellitus without complications; 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.4 - 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
[2018-09-09 15:20] LABS: Basophils % 0.2 %; Hematocrit 32.6 % (35.3-44.9); Immature Granulocytes % 0.4 % (0-4); Lymphocytes # 0.4 K/mcL (0.6-4.6); Mean Corpuscular HGB Conc 31.6 g/dL (31.6-35.5); Mean Corpuscular Hemoglobin 29.9 pg (28.0-33.3); Mean Corpuscular Volume 94.8 fL (83.0-100.0); Mean Platelet Volume 9.8 fL (9.4-12.4); Monocytes # 0.5 K/mcL (0.0-1.3); Neutrophils # 10.2 K/mcL (1.6-8.9); Platelet Count 194 K/mcL (140-400); Red Blood Count 3.44 M/mcL (3.82-4.97); Red Cell Distribution Width 12.4 % (11.5-14.5); Segmented Neutrophils % 91.4 %
[2018-09-09 15:22] LABS: Hemoglobin 10.3 g/dL (11.5-15.4)
--- NOTE | 2018-09-09 17:32 | Operative Note ---
Date of procedure: 09/09/18 Pre-op diagnosis: Bilateral hip femoral neck fractures. Right displaced, left nondisplaced. Post-op diagnosis: same Procedure: Left hip percutaneous pinning of nondisplaced femoral neck fracture. Right hip hemiarthroplasty for displaced femoral neck fracture. Implants: Synthes 7.3 mm cannulated screws [employer] echo system Anesthesia: IMELDA Surgeon: Jere Henry Was there an shipping assistant present: No Estimated blood loss (cc): 300 Specimen: Femoral head sent to pathology Condition: stable Disposition: PACU Procedure in Detail: The patient received IV antibiotics in the holding area, she was brought to the operating room, a sign in was performed, and she underwent general anesthesia on the hospital bed. The patient was then transferred to the OR fracture table in supine position. The patient was positioned against the groin post, with traction applied to the left lower extremity. The contralateral lower extremity was then placed onto a well-padded leg gandhi keeping her hip flexed and abducted. Once the patient was well positioned, the x-ray C-arm was brought in and fluoroscopy shots of the hip were taken, adjusting the lower extremity, making sure we will get a good AP and lateral views. Live fluoroscopy was also checked with the hip show it was stable in the valgus impacted position. The left hip and thigh down to the knee was then prepped and draped in standard technique. A timeout was performed. The guidewire was placed over the hip and it's position was checked under fluoroscopy. The guidewires in place percutaneously through skin and driven from the lateral cortex paralleling the inferior neck and staying central on the AP plane. This was driven up to the head, its position checked on AP and lateral views. A 3 cm longitudinal incisions then made going superior to the guidewire. The depth was measured, next I overdrilled the guidewire and placed the appropriate length screw with long threads. Another guidewire was then placed superior and anterior, steps were repeated to place another screw. Final AP and lateral shots were taken and saved, showing good screw placement. The wound was irrigated normal saline, the subcutaneous tissues closed with 2-0 Vicryl sutures, and skin stapled. Sterile dressings were applied. The patient was then transferred to the normal OR table in supine position. The patient was positioned in the left lateral decubitus position, supported by pelvic supports. Bony prominences of the left lower extremity were well padded. The right lower extremity was then prepped and draped in usual sterile fashion. A timeout was performed. The level of the greater trochanter was palpated, a 10-12 cm curvilinear posterior incision was made, followed by Bovie dissection. The hip abductor was sharply split in line with its fibers with a curved Ding scissors, incising the fascia over the gluteus tori also. The Charnley retractors were then positioned, making sure all not to go too deeply, to protect the sciatic nerve. The bursa over the greater trochanter was excised with Bovie electrocautery. The left hip was then internally rotated, putting the short external rotators on stretch. These were taken down from the insertion point with the Bovie cautery, starting from less of a trochanter and going approximately to the femoral neck. The capsule along the posterior femoral neck and head was then T'ed, giving exposure to the fractured femoral head/neck. The head was then removed with a power corkscrew, and cutting the ligamentum teres. The head was measured and a size 46 mm diameter was chosen. The acetabulum was washed out of any bone fragments, and a trial head was placed giving a good fit. Next, the exposed fractured femoral neck was cleaned up with a rongeur, a preparing box tender was then used to remove the lateral bone. The canal finder was then inserted. We then started broaching with a press-fit broaches from the [employer] echo tray. Starting with a press-fit 7, and moving up to a press-fit 11, keeping the appropriate anteversion. The trial stem was well fixed with no toggling. The broach was then removed. The canal was irrigated out and suctioned. The [employer] Echo press-fit stem was then opened, using a lateralized 130 degree neck angle and a size 11 pressfit stem, the implant was tapped in place, making sure to keep the correct anteversion. Once well positioned, we trialed with a 46 mm diameter trial head, and a -3 mml neck length. Stability was checked along with leg length, it was felt that the leg length was slightly long. I then trialed with a -6 mm neck length. The leg lengths felt equal, the patient had good extension of the left lower extremity, is able to flex the hip, adduct, and internally rotated up to 60 degrees before the hip started subluxing out. The trial components removed. The acetabulum was copiously irrigated with normal saline once again making sure it was well cleaned out. Next the 46 mm unipolar head was opened with a - 6mm neck length. This assembled and tapped in place. The hip was reduced, and stability was checked once again. We had good stability. The joint was then irrigated with Bactisure, followed by normal saline. The joint was soaked in Irrisept. The capsule was then closed with 2-0 FiberWire figure of 8 sutures. The leg was placed on Ding stand, and the short external rotators were reattached to the bone using the FiberWire. The tensor fascia along with the gluteus fascia was closed with FiberWire [id number] sutures and a #1 Vicryl running suture proximally. Once again irrigating the wound with pulse lavage. The deep fat layer was closed with 0 Vicryl, subcutaneous tissues with 2-0 Vicryl simple sutures, and finally the skin was closed with emma. Sterile dressings were applied. A hip abduction wedge was in place between the patient's legs. She was then rolled over into supine position and transferred back onto the hospital bed where she was extubated and taken to the recovery room in stable condition.
[2018-09-09] MEDS: Ascorbic Acid 500 MG TABLET PO SCH (18:03)
[2018-09-10] MEDS ORDERED: *HR* Enoxaparin 30 MG/0.3 ML SYRINGE SQ SCH ×2 (06:00→12:04)
[2018-09-10] MEDS: Levothyroxine 25 MCG TABLET PO SCH (06:12)
[2018-09-10 07:21] LABS: Calcium 8.5 mg/dL (8.6-10.3); Magnesium 1.7 mg/dL (1.6-2.6); Phosphorous 4.3 mg/dL (2.7-4.5); Potassium 4.3 mEq/L (3.5-5.1)
[2018-09-10 07:25] LABS: Basophils % 0.2 %; Eosinophils % 0.1 %; Hematocrit 26.9 % (35.3-44.9); Hemoglobin 8.5 g/dL (11.5-15.4); Immature Granulocytes % 0.2 % (0-4); Lymphocytes # 2.2 K/mcL (0.6-4.6); Lymphocytes % 23.3 %; Mean Corpuscular HGB Conc 31.6 g/dL (31.6-35.5); Mean Corpuscular Hemoglobin 29.9 pg (28.0-33.3); Mean Corpuscular Volume 94.7 fL (83.0-100.0); Mean Platelet Volume 10.5 fL (9.4-12.4); Monocytes % 10.7 %; Neutrophils # 6.1 K/mcL (1.6-8.9); Platelet Count 200 K/mcL (140-400); Red Blood Count 2.84 M/mcL (3.82-4.97); Red Cell Distribution Width 12.5 % (11.5-14.5); Segmented Neutrophils % 65.5 %
[2018-09-10] MEDS: cloNIDine HCl 0.1 MG TABLET PO SCH ×2 (07:53→20:04)
[2018-09-10] MEDS: Multivit/Ca/Min/Fe/FA 1 TAB TABLET PO SCH (07:53)
[2018-09-10] MEDS: cefTRIAXone 1,000 MG in Water for inj. (sterile) 20 ML 10 ML IVP SCH (07:54)
[2018-09-10] MEDS: Ascorbic Acid 500 MG TABLET PO SCH ×2 (07:54→16:06)
[2018-09-10] MEDS: Insulin LISPRO 300 UNITS/3 ML VIAL SQ SCH (07:57)
[2018-09-10 09:56] LABS: Estimated Average Glucose 117 mg/dl; Hemoglobin A1C 5.7 %
--- NOTE | 2018-09-10 11:25 | Internal Med Progress Note ---
Hospitalist Progress Note - Encounter Date of Encounter: 09/10/18 Time of Encounter: 11:21 - Subjective Interval History: I have seen and evaluate the patient at bedside. patient pleasantly demented. she reports right hip pain, denies chest pain, shortness of breath, nausea or abdominal pain. - Exam Vitals: Temp Pulse Resp BP Pulse Ox 98.3 F 82 18 119/61 93 09/10/18 11:18 09/10/18 11:18 09/10/18 11:18 09/10/18 11:18 09/10/18 11:18 Exam: Vitals: Reviewed. General: Alert and oriented only to person not time or place. In mild distress due to right hip pain Cardiovascular: Irregularly irregular, normal S1 & S2, no rubs, murmurs or gallops. Lungs: CTA b/l, no wheezes or crackles. Abdomen: Soft, non-tender, no rigidity. NABS in all 4 quadrants Extremities: No edema Neurological: No focal neurological abnormalities Rest of the physical exam is non contributory - Assessment and Plan (1) Closed right hip fracture Current Visit: Yes Status: Acute Assessment and Plan: patient POD2 s/p Left hip percutaneous pinning of nondisplaced femoral neck fracture. and Right hip hemiarthroplasty for displaced femoral neck fracture. Plan PT/OT will discuss with ortho about dc planning Continue pain control with oxycodone 5 mg sublingual every 6 hours when necessary, and Percocet 5/325 milligrams one tablet by mouth every 6 hours when necessary. (2) Hypertension Current Visit: Yes Status: Chronic Assessment and Plan: Blood pressure is well controlled. patient on clonidine 0.1mg/PO BID. on hydralazine 10mg/IV Q6HR PRN for SBP >190 (3) Dementia Current Visit: Yes Status: Chronic Assessment and Plan: On memantie 28mg/PO daily and donepezil 10mg/PO daily (4) Diabetes Current Visit: Yes Status: Resolved Assessment and Plan: A1c 5.7. Patient tolerating oral diet. Discontinue Accu-Cheks and insulin sliding scale. (5) Elevated troponin Current Visit: Yes Status: Ruled-out (6) Fall Current Visit: Yes Status: Acute Assessment and Plan: Daily PT/OT. (7) Urinary tract infection Current Visit: Yes Status: Acute Assessment and Plan: Continue IV antibiotics to complete 5 days of treatment. On ceftriaxone gram IV daily. (8) Hypothyroidism Current Visit: Yes Status: Chronic Assessment and Plan: Continue levothyroxine 25 mcg/PO daily. (9) Atrial fibrillation Current Visit: Yes Status: Chronic Assessment and Plan: Rate controlled. Patient status post pacemaker. Off anticoagulation due to high risk of falls. Continue telemetry monitoring. (10) Anemia Current Visit: Yes Status: Acute Assessment and Plan: Possible acute blood loss anemia. estimated blood loss 300 cc. will continue monitoring and transfuse per protocol. (11) Acute kidney injury Current Visit: Yes Status: Acute Assessment and Plan: Possible secondary to low preload, s/p Left hip percutaneous pinning of nondisplaced femoral neck fracture. Right hip hemiarthroplasty for displaced femoral neck fracture. with estimated blood loss of 300 cc. continue gentle IV hydration. We will reassess kidney function tomorrow morning. DVT Prophylaxis: On enoxaparin 30 mg subcutaneous twice a day for DVT prophylaxis per orthopedic recommendation. - Summary of Assessment and Plan Summary of Assessment and Plan: Patient to remain in the hospital due to hip fracture s/p Left hip percutaneous pinning of nondisplaced femoral neck fracture. Right hip hemiarthroplasty for displaced femoral neck fracture. Potential discharge to rehabilitation tomorrow. - Time Spent with Patient Total time spent is greater than 50% in coordination of care (as documented) at patient's floor/unit and/or counseling patient: Greater than 35 minutes (40) Plan of Care Discussed with: nurse Internal Medicine: Result - Labs CBC & Chem 7: 09/10/18 06:30 09/10/18 06:30 Labs: Short CBC 09/09/18 09/10/18 Range/Units 15:06 06:30 WBC 11.1 9.2 (4.3-11.1) K/mcL Hgb 10.3 L D 8.5 L D (11.5-15.4) g/dL Hct 32.6 L 26.9 L (35.3-44.9) % Plt Count 194 200 (140-400) K/mcL Neutrophils # 10.2 H 6.1 (1.6-8.9) K/mcL BMP 09/10/18 06:30 Sodium 138 Potassium 4.3 Chloride 101 Carbon Dioxide 29 BUN 32 H Creatinine 1.29 H Glucose 110 H Calcium 8.5 L - ABG Interpretation ABG results: PT/INR, D-dimer PT 11.7 Seconds (9.4-12.1) 09/07/18 05:25 - Impressions Impressions Hip X-Ray 09/09/18 00:00 IMPRESSION: 1. Status post uncomplicated right hip arthroplasty. D/ / Trav Vila MD / Trav Vila MD Interpreting Provider: Trav Vila MD Consult Discharge Plan - Plan Referrals: NONE,PCP [Primary Care Provider] - (1) Closed right hip fracture Qualifiers: Encounter type: initial encounter Qualified Code(s): S72.001A - Fracture of unspecified part of neck of right femur, initial encounter for closed fracture (2) Hypertension Qualifiers: Hypertension type: unspecified Qualified Code(s): I10 - Essential (primary) hypertension (3) Dementia Qualifiers: Dementia type: unspecified type Dementia behavioral disturbance: without behavioral disturbance Qualified Code(s): F03.90 - Unspecified dementia without behavioral disturbance (4) Diabetes Qualifiers: Diabetes mellitus type: type 2 Diabetes mellitus longterm insulin use: with longterm use Diabetes mellitus complication status: without complication Qualified Code(s): E11.9 - Type 2 diabetes mellitus without complications; Z79.4 - USP (current) use of insulin (6) Fall Qualifiers: Encounter type: initial encounter Qualified Code(s): W19.XXXA - Unspecified fall, initial encounter (7) Urinary tract infection Qualifiers: Urinary tract infection type: acute cystitis Hematuria presence: with hematuria Qualified Code(s): N30.01 - Acute cystitis with hematuria (8) Hypothyroidism Qualifiers: Hypothyroidism type: unspecified Qualified Code(s): E03.9 - Hypothyroidism, unspecified (9) Atrial fibrillation Qualifiers: Atrial fibrillation type: unspecified Qualified Code(s): I48.91 - Unspecified atrial fibrillation (10) Anemia Qualifiers: Anemia type: unspecified type Qualified Code(s): D64.9 - Anemia, unspecified
[2018-09-10] MEDS: OXYCODONE Oral CONC 10 MG/0.5 ML ORAL.SYG SL PRN (12:57)
--- NOTE | 2018-09-10 13:23 | Orthopedics Progress Note ---
Date of Encounter: 09/10/18 Time of Encounter: 13:10 - Assessment and Plan (1) Bilateral closed hip fractures Current Visit: Yes Status: Acute POD#1 s/p left hip pinning, right hip hemiarthroplasty 09/09 Continue with PT/OT - WBAT with walker dressings are c/d/i to be changed tomorrow. Continue ice as needed. H/H - 8.5/26.9 DVT prophylaxis - recommend lovenox [id number] then transition to aspirin 325mg daily. She is planned to go to [facility] upon discharge Will follow up in [facility] office at [facility] for reevaluation. Qualifiers: Encounter type: subsequent encounter Fracture healing: with routine healing Qualified Code(s): S72.001D - Fracture of unspecified part of neck of right femur, subsequent encounter for closed fracture with routine healing; S72.002D - Fracture of unspecified part of neck of left femur, subsequent encounter for closed fracture with routine healing Subjective Principal diagnosis: POD#1 s/p left hip pinning, right hip hemiarthroplasty 09/09 Interval history: Patient doing well today and resting comfortably. She does not pain in hips tolerable at this time. Patient does not remember working with therapy this morning (dementia) but is documented that she took 4 steps with assistance. Patient denies any new concerns at this time. Objective Vital signs: Vital Signs Temp Pulse Pulse Resp BP Pulse Ox 09/10/18 11:18 98.3 F 82 18 119/61 93 09/10/18 06:53 99.1 F 74 16 104/61 94 09/10/18 03:53 98.7 F 64 16 127/55 95 09/10/18 00:57 98.7 F 66 16 142/61 96 09/09/18 20:49 72 09/09/18 19:59 98.7 F 74 14 101/54 96 09/09/18 16:09 98.5 F 63 12 137/66 95 09/09/18 14:00 98.3 F 61 14 127/58 94 Intake and Output 09/09/18 09/10/18 09/10/18 23:59 07:59 15:59 Intake Total 200 / 220 350 / 350 0 / 350 Output Total 450 / 1628 200 / 275 75 / 275 Balance -250 / -1408 150 / 75 -75 / 75 Intake: Oral 200 / 200 350 / 350 0 / 350 Output: Urine 75 / 75 Catheter 450 / 625 200 / 200 Other: Meal Lunch Percent of Meal Consumed 0% # Voids 1 Weight 66.75 kg Blood Glucose* 197 114 117 Patient Weight 09/10/18 23:59 Weight 66.75 kg Incision: clean and dry (dressings to bilateral hips are clean, dry, and intact with no visible erythema or drainage noted. no calf tenderness to palpation bilaterally. good dorsiflextion of both feet and sensation intact distally bilaterally. ) - Labs CBC & BMP: 09/10/18 06:30 09/10/18 06:30 Labs: Abnormal lab results WBC 11.7 K/mcL (4.3-11.1) H 09/08/18 00:43 RBC 2.84 M/mcL (3.82-4.97) L 09/10/18 06:30 Hgb 8.5 g/dL (11.5-15.4) L D 09/10/18 06:30 Hct 26.9 % (35.3-44.9) L 09/10/18 06:30 10.2 K/mcL (1.6-8.9) H 09/09/18 15:06 0.4 K/mcL (0.6-4.6) L 09/09/18 15:06 Heparin Anti-Xa, Unfract 0.71 IU/mL (0.30-0.70) H 09/07/18 12:29 Carbon Dioxide 31 mEq/L (23-29) H 09/07/18 05:25 BUN 32 mg/dL (8-23) H 09/10/18 06:30 1.29 mg/dL (0.60-1.20) H 09/10/18 06:30 Est GFR ( Amer) 48 (> 60) L 09/10/18 06:30 Est GFR (Non-Af Amer) 39 (> 60) L 09/10/18 06:30 Glucose 110 mg/dL (70-105) H 09/10/18 06:30 POC Glucose 152 mg/dL (70-99) H 09/09/18 17:59 5.7 % (-5.6) H 09/09/18 07:18 Calcium 8.5 mg/dL (8.6-10.3) L 09/10/18 06:30 0.06 ng/mL (< 0.04) H* 09/08/18 08:23 Red (Yellow) A 09/08/18 12:07 Cloudy (Clear) A 09/08/18 12:07 30 mg/dL (Neg-Trace) H 09/08/18 12:07 Ur Leukocyte Esterase Moderate (Negative) H 09/08/18 12:07 15-30 per hpf (0-3) H 09/08/18 12:07 Consult Discharge Plan - Plan Referrals: NONE,PCP [Primary Care Provider] -
[2018-09-11 04:28] LABS: Basophils % 0.3 %; Eosinophils # 0.2 K/mcL (0.0-0.6); Eosinophils % 2.3 %; Hematocrit 24.8 % (35.3-44.9); Immature Granulocytes % 0.3 % (0-4); Lymphocytes # 2.6 K/mcL (0.6-4.6); Lymphocytes % 26.1 %; Mean Corpuscular Hemoglobin 29.7 pg (28.0-33.3); Mean Corpuscular Volume 95.8 fL (83.0-100.0); Mean Platelet Volume 10.4 fL (9.4-12.4); Monocytes % 10.2 %; Neutrophils # 5.9 K/mcL (1.6-8.9); Platelet Count 203 K/mcL (140-400); Red Blood Count 2.59 M/mcL (3.82-4.97); Red Cell Distribution Width 12.8 % (11.5-14.5); Segmented Neutrophils % 60.8 %
[2018-09-11 04:39] LABS: Calcium 8.4 mg/dL (8.6-10.3); Potassium 3.8 mEq/L (3.5-5.1)
[2018-09-11 04:40] LABS: Magnesium 1.8 mg/dL (1.6-2.6); Phosphorous 4.3 mg/dL (2.7-4.5)
[2018-09-11 04:42] LABS: Hemoglobin 7.7 g/dL (11.5-15.4)
[2018-09-11] MEDS: Levothyroxine 25 MCG TABLET PO SCH (05:02)
[2018-09-11] MEDS ORDERED: *HR* Enoxaparin 30 MG/0.3 ML SYRINGE SQ SCH (06:00)
[2018-09-11] MEDS: Multivit/Ca/Min/Fe/FA 1 TAB TABLET PO SCH (08:08)
[2018-09-11] MEDS: cloNIDine HCl 0.1 MG TABLET PO SCH ×2 (08:08→19:55)
[2018-09-11] MEDS: Ascorbic Acid 500 MG TABLET PO SCH ×2 (08:08→17:17)
[2018-09-11] MEDS: cefTRIAXone 1,000 MG in Water for inj. (sterile) 20 ML 10 ML IVP SCH (08:09)
[2018-09-11] MEDS: OXYCODONE Oral CONC 10 MG/0.5 ML ORAL.SYG SL PRN ×2 (08:09→15:24)
--- NOTE | 2018-09-11 15:33 | Internal Med Progress Note ---
Hospitalist Progress Note - Encounter Date of Encounter: 09/11/18 Time of Encounter: 15:30 - Subjective Interval History: I have seen and evaluated the patient at bedside. Patient reports feeling better today, denies pain in her hips, denies chest pain, shortness of breath, or abdominal pain. - Exam Vitals: Temp Pulse Resp BP Pulse Ox 97.9 F 69 14 123/72 98 09/11/18 11:30 09/11/18 11:30 09/11/18 11:30 09/11/18 11:30 09/11/18 11:30 Exam: Vitals: Reviewed. General: Alert and oriented only to person not time or place. In no distress Cardiovascular: Irregularly irregular, normal S1 & S2, no rubs, murmurs or gallops. Lungs: CTA b/l, no wheezes or crackles. Abdomen: Soft, non-tender, no rigidity. NABS in all 4 quadrants Extremities: No edema Neurological: No focal neurological abnormalities Rest of the physical exam is non contributory - Assessment and Plan (1) Bilateral closed hip fractures Current Visit: Yes Status: Acute Assessment and Plan: POD#2 s/p left hip pinning, right hip hemiarthroplasty 5/5 Plan PT/OT patient has been accepted at [facility]. pain controlled with oxycodone for pain control (2) Hypertension Current Visit: Yes Status: Chronic Assessment and Plan: BP is well controlled on clonidine (3) Dementia Current Visit: Yes Status: Chronic Assessment and Plan: continue memantie 28mg/PO daily and donepezil 10mg/PO daily (4) Fall Current Visit: Yes Status: Acute Assessment and Plan: Daily PT/OT. (5) Urinary tract infection Current Visit: Yes Status: Acute Assessment and Plan: on ceftriaxone 1gm/IV daily. complete 7 days of treatment (6) Hypothyroidism Current Visit: Yes Status: Chronic Assessment and Plan: On levothyroxine 25 mcg/PO daily. (7) Atrial fibrillation Current Visit: Yes Status: Chronic Assessment and Plan: rate controlled. off anticoagulation due to high risks of falls. s/p pacemaker (8) Anemia Current Visit: Yes Status: Acute Assessment and Plan: possible acute blood lost anemia vs dilutional. H&H dropped to 7.7&24.8 today. will repeat cbc at 6pm. will transfuse per protocol. will hold enoxaparin FOBT ordered (9) Acute kidney injury Current Visit: Yes Status: Acute Assessment and Plan: slightly worsening kidney function today. will continue gentle IV hydration. (10) Elevated troponin Current Visit: Yes Status: Ruled-out DVT Prophylaxis: enoxaparin held due to drop in H&H. intermittent mechanical compression for DVT prophylaxis - Summary of Assessment and Plan Summary of Assessment and Plan: Will keep patient in the hospital to monitor H&H. - Time Spent with Patient Total time spent is greater than 50% in coordination of care (as documented) at patient's floor/unit and/or counseling patient: Greater than 35 minutes (40) Plan of Care Discussed with: nurse Internal Medicine: Result - Labs CBC & Chem 7: 09/11/18 03:19 09/11/18 03:19 Labs: Short CBC 09/11/18 Range/Units 03:19 WBC 9.8 (4.3-11.1) K/mcL Hgb 7.7 L (11.5-15.4) g/dL Hct 24.8 L (35.3-44.9) % Plt Count 203 (140-400) K/mcL Neutrophils # 5.9 (1.6-8.9) K/mcL BMP 09/11/18 03:19 Sodium 138 Potassium 3.8 Chloride 101 Carbon Dioxide 28 BUN 41 H Creatinine 1.42 H Glucose 108 H Calcium 8.4 L - ABG Interpretation ABG results: PT/INR, D-dimer PT 11.7 Seconds (9.4-12.1) 09/07/18 05:25 Consult Discharge Plan - Plan Referrals: NONE,PCP [Primary Care Provider] - (1) Bilateral closed hip fractures Qualifiers: Encounter type: subsequent encounter Fracture healing: with routine healing Qualified Code(s): S72.001D - Fracture of unspecified part of neck of right femur, subsequent encounter for closed fracture with routine healing; S72.002D - Fracture of unspecified part of neck of left femur, subsequent encounter for closed fracture with routine healing (2) Hypertension Qualifiers: Hypertension type: unspecified Qualified Code(s): I10 - Essential (primary) hypertension (3) Dementia Qualifiers: Dementia type: unspecified type Dementia behavioral disturbance: without behavioral disturbance Qualified Code(s): F03.90 - Unspecified dementia without behavioral disturbance (4) Fall Qualifiers: Encounter type: initial encounter Qualified Code(s): W19.XXXA - Unspecified fall, initial encounter (5) Urinary tract infection Qualifiers: Urinary tract infection type: acute cystitis Hematuria presence: with hematuria Qualified Code(s): N30.01 - Acute cystitis with hematuria (6) Hypothyroidism Qualifiers: Hypothyroidism type: unspecified Qualified Code(s): E03.9 - Hypothyroidism, unspecified (7) Atrial fibrillation Qualifiers: Atrial fibrillation type: unspecified Qualified Code(s): I48.91 - Unspecified atrial fibrillation (8) Anemia Qualifiers: Anemia type: unspecified type Qualified Code(s): D64.9 - Anemia, unspecified
--- NOTE | 2018-09-11 16:42 | Orthopedics Progress Note ---
Date of Encounter: 09/11/18 Time of Encounter: 13:30 - Assessment and Plan (1) Bilateral closed hip fractures Current Visit: Yes Status: Acute POD#2 s/p left hip pinning, right hip hemiarthroplasty 09/09 Continue with PT/OT - WBAT with walker dressings are c/d/i to be changed today Continue ice as needed. H/H - 7.7/24.8 DVT prophylaxis - recommend lovenox [id number] then transition to aspirin 325mg daily. She is planned to go to [facility] upon discharge when medically stable and receive insurance auth. Will follow up in [facility] office at [facility] for reevaluation. appt card to be faxed to floor. Orthopedics will sign off at this time. Please call with any future questions. Qualifiers: Qualified Code(s): S72.001D - Fracture of unspecified part of neck of right femur, subsequent encounter for closed fracture with routine healing; S72.002D - Fracture of unspecified part of neck of left femur, subsequent encounter for closed fracture with routine healing Subjective Principal diagnosis: POD#2 s/p left hip pinning, right hip hemiarthroplasty 09/09 Interval history: Patient states her hips are more painful today. Patient again does not remember working with therapy this morning (dementia) but is documented PT/OT both worked with her. Patient denies any new concerns at this time. Objective Vital signs: Vital Signs Temp Pulse Resp BP Pulse Ox 09/11/18 11:30 97.9 F 69 14 123/72 98 09/11/18 07:52 98.7 F 72 14 115/53 96 09/11/18 03:42 98.8 F 09/11/18 03:22 100.2 F H 70 16 110/66 97 09/10/18 23:31 97.9 F 100 15 115/72 96 09/10/18 20:19 98.7 F 93 17 108/56 94 09/10/18 20:12 93 09/10/18 17:29 98.6 F 95 18 103/55 93 Intake and Output 09/11/18 09/11/18 09/11/18 07:59 15:59 23:59 Intake Total 320 / 320 Output Total 600 / 800 200 / 800 Balance -600 / -480 120 / -480 Intake: Oral 320 / 320 Output: Urine 600 / 800 200 / 800 Other: Meal Lunch Percent of Meal Consumed 50% Stool Size Large # Voids 1 Blood Glucose* 118 117 Incision: clean and dry (dressings to bilateral hips are c/d/i with no visible erythema or drainage. calves nontendern, good dorsiflexion of feet bilaterally and sensation intact distally bilaterally) - Labs CBC & BMP: 09/11/18 03:19 09/11/18 03:19 Labs: Abnormal lab results WBC 11.7 K/mcL (4.3-11.1) H 09/08/18 00:43 RBC 2.59 M/mcL (3.82-4.97) L 09/11/18 03:19 Hgb 7.7 g/dL (11.5-15.4) L 09/11/18 03:19 Hct 24.8 % (35.3-44.9) L 09/11/18 03:19 MCHC 31.0 g/dL (31.6-35.5) L 09/11/18 03:19 10.2 K/mcL (1.6-8.9) H 09/09/18 15:06 0.4 K/mcL (0.6-4.6) L 09/09/18 15:06 Heparin Anti-Xa, Unfract 0.71 IU/mL (0.30-0.70) H 09/07/18 12:29 Carbon Dioxide 31 mEq/L (23-29) H 09/07/18 05:25 BUN 41 mg/dL (8-23) H 09/11/18 03:19 1.42 mg/dL (0.60-1.20) H 09/11/18 03:19 Est GFR ( Amer) 43 (> 60) L 09/11/18 03:19 Est GFR (Non-Af Amer) 35 (> 60) L 09/11/18 03:19 29 (6-26) H 09/11/18 03:19 Glucose 108 mg/dL (70-105) H 09/11/18 03:19 POC Glucose 131 mg/dL (70-99) H 09/11/18 16:23 5.7 % (-5.6) H 09/09/18 07:18 Calcium 8.4 mg/dL (8.6-10.3) L 09/11/18 03:19 0.06 ng/mL (< 0.04) H* 09/08/18 08:23 Red (Yellow) A 09/08/18 12:07 Cloudy (Clear) A 09/08/18 12:07 30 mg/dL (Neg-Trace) H 09/08/18 12:07 Ur Leukocyte Esterase Moderate (Negative) H 09/08/18 12:07 15-30 per hpf (0-3) H 09/08/18 12:07 Consult Discharge Plan - Plan Referrals: NONE,PCP [Primary Care Provider] -
[2018-09-12] MEDS: Levothyroxine 25 MCG TABLET PO SCH (06:12)
[2018-09-12] MEDS: cefTRIAXone 1,000 MG in Water for inj. (sterile) 20 ML 10 ML IVP SCH (08:44)
[2018-09-12] MEDS: cloNIDine HCl 0.1 MG TABLET PO SCH (08:44)
[2018-09-12] MEDS: Multivit/Ca/Min/Fe/FA 1 TAB TABLET PO SCH (08:44)
[2018-09-12] MEDS: Ascorbic Acid 500 MG TABLET PO SCH (08:44)
[2018-09-12 09:12] LABS: Basophils % 0.2 %; Eosinophils # 0.2 K/mcL (0.0-0.6); Eosinophils % 2.8 %; Hemoglobin 7.9 g/dL (11.5-15.4); Immature Granulocytes % 0.4 % (0-4); Lymphocytes # 2.3 K/mcL (0.6-4.6); Lymphocytes % 27.8 %; Mean Corpuscular HGB Conc 30.4 g/dL (31.6-35.5); Mean Corpuscular Hemoglobin 29.2 pg (28.0-33.3); Mean Corpuscular Volume 95.9 fL (83.0-100.0); Mean Platelet Volume 10.2 fL (9.4-12.4); Monocytes # 0.6 K/mcL (0.0-1.3); Monocytes % 7.8 %; Platelet Count 241 K/mcL (140-400); Red Blood Count 2.71 M/mcL (3.82-4.97); Red Cell Distribution Width 12.9 % (11.5-14.5)
[2018-09-12 09:31] LABS: Calcium 9.2 mg/dL (8.6-10.3); Magnesium 2.1 mg/dL (1.6-2.6)
--- NOTE | 2018-09-12 10:00 | Discharge Summary ---
- NOTES TO OUTPATIENT PROVIDER Notes to Outpatient Provider: Have a repeat cbc within a week Orders not resulted at time of discharge: Pending orders 09/09/18 08:45 XR hip complete LT [XR] Routine 09/09/18 10:48 Surgical Pathology [PTH] Routine Date of Encounter: 09/12/18 Time of Encounter: 09:52 - Discharge Diagnosis (1) Bilateral closed hip fractures Priority: Primary Status: Acute Qualifiers: Encounter type: subsequent encounter Fracture healing: with routine healing Qualified Code(s): S72.001D - Fracture of unspecified part of neck of right femur, subsequent encounter for closed fracture with routine healing; S72.002D - Fracture of unspecified part of neck of left femur, subsequent encounter for closed fracture with routine healing (2) Hypertension Priority: Secondary Status: Chronic Qualifiers: Hypertension type: unspecified Qualified Code(s): I10 - Essential (primary) hypertension (3) Dementia Priority: Secondary Status: Chronic Qualifiers: Dementia type: unspecified type Dementia behavioral disturbance: without behavioral disturbance Qualified Code(s): F03.90 - Unspecified dementia without behavioral disturbance (4) Fall Priority: Secondary Status: Acute Qualifiers: Encounter type: initial encounter Qualified Code(s): W19.XXXA - Unspecified fall, initial encounter (5) Urinary tract infection Priority: Secondary Status: Acute Qualifiers: Urinary tract infection type: acute cystitis Hematuria presence: with hematuria Qualified Code(s): N30.01 - Acute cystitis with hematuria (6) Hypothyroidism Priority: Secondary Status: Chronic Qualifiers: Hypothyroidism type: unspecified Qualified Code(s): E03.9 - Hypothyroidism, unspecified (7) Atrial fibrillation Priority: Secondary Status: Chronic Qualifiers: Atrial fibrillation type: unspecified Qualified Code(s): I48.91 - Unspecified atrial fibrillation (8) Anemia Priority: Secondary Status: Acute Qualifiers: Anemia type: unspecified type Qualified Code(s): D64.9 - Anemia, unspecified (9) Acute kidney injury Priority: Secondary Status: Resolved (10) Elevated troponin Priority: Secondary Status: Ruled-out Hospital course: Ms. Dumont is a 83 year old female past medical history of A. fib, dementia, hypertension, and hypothyroidism. She was transferred from [facility] for evaluation of right hip pain. She says that she had a fall at home after she was trying to get up out of her chair and then she fell onto her right hip. CT of the patient's right hip showed a transcervical right femoral neck fracture with mild superior and anterior displacement of the distal fracture fragment. Patient admitted to the hospital due to bilateral hip fracture. Patient underwent Left hip percutaneous pinning of nondisplaced femoral neck fracture. Right hip hemiarthroplasty for displaced femoral neck fracture. Patient recommended to have a repeat CBC within a week of hospital discharge. Hemodynamically stable to be discharged to rehabilitation. - Time Spent with Patient Total time spent providing and/or coordinating discharge services: Time spent: Greater than 30 minutes (40) - Discharge Medications Prescriptions: New Amoxicillin/Clavulanate [Augmentin] 875 mg PO BIDWM 4 Days #2 tablet Docusate [Colace] 100 mg PO BID 30 Days #60 capsule OXYCODONE Oral CONC [Oxycodone Oral Conc] 5 mg SL Q6HR PRN 7 Days #15 oral.syg PRN Reason: Severe Pain OxyCODONE/APAP 5/325 [Percocet 5/325 MG] 1 each PO Q6HR PRN 7 Days #17 tablet PRN Reason: Moderate Pain Temazepam [Restoril] 15 mg PO HS PRN 30 Days #30 capsule PRN Reason: Insomnia Continued Ferrous Sulfate [Iron] 325 mg PO BID Amlodipine/Valsartan [Exforge 10-320 mg Tablet] 1 each PO DAILY Ergocalciferol (VITAMIN D2) [Vitamin D2] 50,000 unit PO TU Memantine HCl/Donepezil HCl [Namzaric 28 mg-10 mg Capsule] 1 cap PO DAILY Levothyroxine Sodium [Levoxyl] 25 mg PO QAM cloNIDine HCl [CloNIDine HCl] 0.1 mg PO BID Ezetimibe/Simvastatin [Vytorin 10-20 mg Tablet] 1 each PO DAILY Triamterene/HCTZ 37.5/25mg [Dyazide] 1 tab PO DAILY Home Medications: Amlodipine/Valsartan [Exforge 10-320 mg Tablet] 1 each PO DAILY 09/07/18 [History] Ergocalciferol (VITAMIN D2) [Vitamin D2] 50,000 unit PO TU 09/07/18 [History] Ezetimibe/Simvastatin [Vytorin 10-20 mg Tablet] 1 each PO DAILY 09/07/18 [History] Ferrous Sulfate [Iron] 325 mg PO BID 09/07/18 [History] Levothyroxine Sodium [Levoxyl] 25 mg PO QAM 09/07/18 [History] Memantine HCl/Donepezil HCl [Namzaric 28 mg-10 mg Capsule] 1 cap PO DAILY 09/07/18 [History] Triamterene/HCTZ 37.5/25mg [Dyazide] 1 tab PO DAILY 09/07/18 [History] cloNIDine HCl [CloNIDine HCl] 0.1 mg PO BID 09/07/18 [History] Amoxicillin/Clavulanate [Augmentin] 875 mg PO BIDWM 4 Days #2 tablet 09/12/18 [Rx] Docusate [Colace] 100 mg PO BID 30 Days #60 capsule 09/12/18 [Rx] OXYCODONE Oral CONC [Oxycodone Oral Conc] 5 mg SL Q6HR PRN 7 Days #15 oral.syg 09/12/18 [Rx] OxyCODONE/APAP 5/325 [Percocet 5/325 MG] 1 each PO Q6HR PRN 7 Days #17 tablet 09/12/18 [Rx] Temazepam [Restoril] 15 mg PO HS PRN 30 Days #30 capsule 09/12/18 [Rx] Allergies/Adverse Reactions: Allergy/AdvReac Type Severity Reaction Status Date / Time No Known Allergies Allergy Verified 09/07/18 06:27 Date of admission: 09/07/18 16:11 Primary care physician: PCP NONE Consults: 09/07/18 07:45 Consult to Cardiology [CONS] Routine Comment: Consulting Provider: Card[facility] [place] Reason for Consult: elevated trops. pre-op clearance Call Completed: No 09/09/18 12:36 Consult to Nurse Navigator [CONS] Routine Comment: ortho navigator Consult to Nutrition [CONS] Routine Comment: Consulting Provider: NUTRITION Reason for Dietary Consult: Other Other:: Proper nutrition to facilitate wound healing Consult to Occupational Therapy [CONS] Routine Comment: Evaluate, develop and implement POC Reason for Consult: total hip replacement Does patient have active BEDREST order?: No Is patient medically & hemodynamically stable?: Yes Consult to Physical Therapy [CONS] Routine Comment: Evaluate, develop and implement POC Reason for Consult: total hip replacement Does patient have active BEDREST order?: No Is patient medically & hemodynamically stable?: Yes Consult to Mortgage Loan Counselor [CONS] Routine Reason for SW Consult: post op joint replacement RT Post Op Consult [CONS] Routine - Constitutional Vitals: Temp Pulse Resp BP Pulse Ox 98.8 F 64 18 128/83 98 09/12/18 06:48 09/12/18 06:48 09/12/18 06:48 09/12/18 06:48 09/12/18 06:48 General appearance: Present: cooperative, A&O X 3, pleasant, no acute distress, answers questions appropriately Exam: Vitals: Reviewed. General: Alert and oriented only to person not time or place. In no distress Cardiovascular: Irregularly irregular, normal S1 & S2, no rubs, murmurs or gallops. Lungs: CTA b/l, no wheezes or crackles. Abdomen: Soft, non-tender, no rigidity. NABS in all 4 quadrants Extremities: No edema Neurological: No focal neurological abnormalities Rest of the physical exam is non contributory - Patient Status Disposition: Transfer SNF Condition: Fair Functional capacity at discharge: uses cane/walker Overall status at discharge: patient is progressing back to baseline - Discharge Instructions Follow Up With: NONE,PCP [Primary Care Provider] - - Diet and Activity Activity: as per physical therapy Diet: low salt diet
--- NOTE | 2018-09-12 10:03 | Physician Discharge Referral ---
ExtendedCare Referral Info Transfer To: snf - Diagnosis (1) Bilateral closed hip fractures Priority: Primary Status: Acute (2) Hypertension Priority: Secondary Status: Chronic (3) Dementia Priority: Secondary Status: Chronic (4) Fall Priority: Secondary Status: Acute (5) Urinary tract infection Priority: Secondary Status: Acute (6) Hypothyroidism Priority: Secondary Status: Chronic (7) Atrial fibrillation Priority: Secondary Status: Chronic (8) Anemia Priority: Secondary Status: Acute (9) Acute kidney injury Priority: Secondary Status: Resolved (10) Elevated troponin Priority: Secondary Status: Resolved Prognosis: Fair Aware of Diagnosis: Family Aware of Prognosis: Family - Transfer Medications Prescriptions: Amoxicillin/Clavulanate [Augmentin] 875 mg PO BIDWM 4 Days #2 tablet Docusate [Colace] 100 mg PO BID 30 Days #60 capsule OXYCODONE Oral CONC [Oxycodone Oral Conc] 5 mg SL Q6HR PRN 7 Days #15 oral.syg PRN Reason: Severe Pain OxyCODONE/APAP 5/325 [Percocet 5/325 MG] 1 each PO Q6HR PRN 7 Days #17 tablet PRN Reason: Moderate Pain Temazepam [Restoril] 15 mg PO HS PRN 30 Days #30 capsule PRN Reason: Insomnia Home Medications: Amlodipine/Valsartan [Exforge 10-320 mg Tablet] 1 each PO DAILY 09/07/18 [History] Ergocalciferol (VITAMIN D2) [Vitamin D2] 50,000 unit PO TU 09/07/18 [History] Ezetimibe/Simvastatin [Vytorin 10-20 mg Tablet] 1 each PO DAILY 09/07/18 [History] Ferrous Sulfate [Iron] 325 mg PO BID 09/07/18 [History] Levothyroxine Sodium [Levoxyl] 25 mg PO QAM 09/07/18 [History] Memantine HCl/Donepezil HCl [Namzaric 28 mg-10 mg Capsule] 1 cap PO DAILY 09/07/18 [History] Triamterene/HCTZ 37.5/25mg [Dyazide] 1 tab PO DAILY 09/07/18 [History] cloNIDine HCl [CloNIDine HCl] 0.1 mg PO BID 09/07/18 [History] Amoxicillin/Clavulanate [Augmentin] 875 mg PO BIDWM 4 Days #2 tablet 09/12/18 [Rx] Docusate [Colace] 100 mg PO BID 30 Days #60 capsule 09/12/18 [Rx] OXYCODONE Oral CONC [Oxycodone Oral Conc] 5 mg SL Q6HR PRN 7 Days #15 oral.syg 09/12/18 [Rx] OxyCODONE/APAP 5/325 [Percocet 5/325 MG] 1 each PO Q6HR PRN 7 Days #17 tablet 09/12/18 [Rx] Temazepam [Restoril] 15 mg PO HS PRN 30 Days #30 capsule 09/12/18 [Rx] Allergies/Adverse Reactions: Allergy/AdvReac Type Severity Reaction Status Date / Time No Known Allergies Allergy Verified 09/07/18 06:27 - Respiratory Orders None Smoking Cessation: Smoking cessation has been advised. For more information, call the [place] Tobacco Quit Line at 5-699-EJXX-NOW. - Advance Directives Code Status: Full Code - Mobility Orders Ambulate - Rehabiliation Orders Rehab Potential: Fair Rehab Orders: Evaluation for Physical Therapy, Evaluation for Occupational Therapy - Diet Orders Regular CERTIFICATION: I certify that the transfer of the above named patient to an Extended Care Facility is necessary for the continuing treatment of the diagnosis listed. The above information is true and accurate reflection of patient's current condition. Confidential - Redisclosure prohibited without a patient's written consent.
[2018-09-12 11:28] VITALS: BP 134/78
== END 2018-09-12 13:17 | DRG 469 ==
LOC: 3NENU → SUATTDRO 09-07 16:11
PROVIDERS: ADMIT Pediatrics; ATTEND Internal Medicine